=== PATIENT | female | born 1960 | race African-American/Black ===

== ENCOUNTER 2017-04-06 11:09 | Outpatient (CLI) | payer MEDICAID, SELFPAY | END 2017-04-06 11:10 | disposition home or self-care (01) | LOC: EDBD → BICMAMMO 11:09 | PROVIDERS: ATTEND Family Medicine | DX: Z12.31 Encounter for screening mammogram for malignant neoplasm of breast (principal) | CPT/HCPCS: 77067 ==

== ENCOUNTER 2017-09-22 16:15 | Emergency (ER) | payer SELFPAY ==
[2017-09-22 16:32] LABS: #Lymphocytes 2.4 thou/uL (1.20-3.40); #Monocytes 0.4 thou/uL (0.11-0.59); #Neutrophils 2.4 thou/uL (1.40-6.50); %Basophils 0.5 % (0.0-1.0); %Eosinophils 0.8 % (0.0-10.0); %Monocytes 7.2 % (0.0-10.0); %Neutrophils 46.4 % (42.0-75.0); Mean Corpuscular HGB CONC 34.7 g/dL (32.0-36.0); Mean Corpuscular Hemoglobin 31.8 pg (27.0-31.0); Mean Corpuscular Volume 91.7 fL (78.0-98.0); Platelet Count 227 thou/uL (130-400); RBC Distribution Width 11.7 % (11.5-14.5); White Blood Cell (WBC) Count 5.2 thou/uL (4.8-10.8)
[2017-09-22 16:38] LABS: BHCG - Serum Negative (NEGATIVE); PTT 31.4 SEC (22.9-36.1); Pregs Control Background? CLEAR/WHITE (CLR/WHITE); Pregs Control Bar Appear? YES (CONTROL BAR); Prothrombin Time 13.4 SEC (12.0-14.7)
--- NOTE | 2017-09-22 16:41 | CT ---
CT OF THE BRAIN WITHOUT CONTRAST: 09/22/17 COMPARISON: 08/19/07. HISTORY: Seizures for one to two minutes just prior to arrival. Intoxicated patient. TECHNIQUE: Multiple contiguous axial images were obtained in a CT of the brain without contrast. FINDINGS: There are a few scattered hypodensities in the subcortical and periventricular white matter, likely s econdary to small vessel ischemic disease. No large confluent infarction is seen. There is no evidenc e of hydrocephalus, intracranial hemorrhage, or extra-axial fluid collection. The calvarium and overlying soft tissues are unremarkable. The visualized paranasal sinuses and masto id air cells are well aerated. IMPRESSION: No evidence of acute intracranial abnormality. POS: [facility]
[2017-09-22 16:45] LABS: ALT (SGPT) 28 U/L (8-55); AST (SGOT) 56 U/L (5-34); Albumin 4.4 g/dL (3.5-5.0); Alkaline Phosphatase 123 U/L (40-150); Anion Gap 18 mmol/L (10-20); BUN (Urea Nitrogen) 7 mg/dL (9.8-20.1); Bilirubin, Total 0.2 mg/dL (0.2-1.2); CK (CPK) 255 U/L (29-168); Calc. Creatinine Clearance 0 mL/min (70-130); Calcium 9.2 mg/dL (7.8-10.44); Carbon Dioxide 21 mmol/L (22-29); Chloride 107 mmol/L (98-107); Estimated GFR-MDRD Greater than 90; Globulin 3.8 g/dL (2.4-3.5); Glucose 96 mg/dL (70-105); Potassium 3.8 mmol/L (3.5-5.1); Protein, Total 8.2 g/dL (6.0-8.3); Sodium 142 mmol/L (136-145)
[2017-09-22 16:49] LABS: CKMB 1.5 ng/mL (0-6.6); Troponin I Less than 0.010 ng/mL (< 0.028)
[2017-09-22 16:50] LABS: Acetaminophen Less than 6.0 mcg/mL (10.0-30.0); Alcohol 348 mg/dL (Less than 10); Lipase 120 U/L (8-78); Magnesium 2.4 mg/dL (1.6-2.6); Salicylate 9.7 mg/dL (15.0-30.0)
--- NOTE | 2017-09-22 16:53 | CT ---
CT OF THE CERVICAL SPINE WITHOUT CONTRAST: 09/22/17 COMPARISON: None. HISTORY: Seizure and fall with neck pain. TECHNIQUE: Multiple contiguous axial images were obtained in a CT of the cervical spine without contrast. Sagitt al and coronal reformats were performed. FINDINGS: There are moderate degenerative changes of the cervical spine. The vertebral bodies and intervertebra l discs demonstrate normal height and alignment without acute fracture or subluxation. No prevertebra l soft tissue swelling is seen. The posterior facets are well aligned. Normal alignment of the skull base with the cervical spine is seen. IMPRESSION: Degenerative changes of the cervical spine without acute osseous abnormality. POS: [facility]
--- NOTE | 2017-09-22 16:57 | CT ---
CTA OF THE CHEST AND ABDOMEN WITH CONTRAST: 09/22/17 COMPARISON: None. HISTORY: Chest pain and seizure. Abdominal pain after fall. Patient is intoxicated. TECHNIQUE: Multiple contiguous axial images were obtained in a CTA of the chest and abdomen with contrast per ao rtic dissection protocol. 3D sagittal and coronal MIP reformats were performed. FINDINGS: The aorta is normal in caliber without dissection or aneurysmal dilatation. This includes the ascendi ng aorta, descending thoracic aorta and abdominal aorta. The heart is normal in size without focal cardiac abnormality. No hilar or mediastinal lymphadenopath y are seen. No focal infiltrates are seen in the lungs. No pneumothorax or pleural effusion are seen. No suspicio us pulmonary nodule is seen. There is diffuse fatty infiltration of the liver. The gallbladder, kidneys, adrenal glands, spleen, a nd pancreas are unremarkable. No free air, free fluid, or stranding changes are seen in the abdomen. The visualized large and small bowel are unremarkable. No abdominal adenopathy is seen. Degenerative changes are seen in the spine. There are remote healed right posterior rib fractures. Th e chest and abdominal wall soft tissues are unremarkable. IMPRESSION: 1. No evidence of aortic dissection or aneurysmal dilatation. 2. Fatty liver. POS: [facility]
--- NOTE | 2017-09-22 16:58 | RAD ---
SINGLE VIEW OF THE CHEST: 09/22/17 COMPARISON: 10/06/09 HISTORY: Seizure and fall with chest pain. FINDINGS: Single view of the chest shows a normal sized cardiomediastinal silhouette. There is no evidence of c onsolidation, mass, or pleural effusion. The bones are unremarkable. IMPRESSION: No evidence of acute cardiopulmonary disease. POS: [facility]
[2017-09-22 17:02] LABS: Bilirubin Negative (Negative); Blood, Urine Negative (Negative); Clarity CLEAR (Clear); Glucose, Urine (Dipstick) Negative (Negative); Leukocyte Negative (Negative); Nitrite Negative (Negative); Protein, Urine (Dipstick) Negative (Neg-Trace); Urobilinogen 0.2 mg/dL (0.2-1.0); pH, Urine 5.5 (5.0-9.0)
[2017-09-22 17:08] LABS: Specific Gravity, Urine 1.003 (1.002-1.036)
[2017-09-22 17:30] LABS: Amphetamine Not Detected (NotDetected); Barbiturates Screen Not Detected (NotDetected); Benzodiazepine Screen Not Detected (NotDetected); Cocaine Metabolite Screen Not Detected (NotDetected); Medtox Control Line Valid? VALID (VALID); Medtox Reader # READER 1; Methadone Not Detected (NotDetected); Methamphetamine Not Detected (NotDetected); Opiate Screen Not Detected (NotDetected); Oxycodone Screen Not Detected (NotDetected); Phencyclidine (PCP) Not Detected (NotDetected); THC/Cannabinoid Screen Not Detected (NotDetected); Tricyclic Screen Not Detected (NotDetected)
[2017-09-22] MEDS ORDERED: Ketorolac Tromethamine 30 MG/ML VIAL ONE (20:03)
[2017-09-22] MEDS ORDERED: HYDROcodone/Acetaminophen 10/325 mg Tablet ONE (20:03)
== END 2017-09-22 20:51 | disposition home or self-care (01) ==
LOC: ERS 16:15
DX: R56.9 Unspecified convulsions (principal); I10 Essential (primary) hypertension; F32.9 Major depressive disorder, single episode, unspecified; F41.9 Anxiety disorder, unspecified; F17.210 Nicotine dependence, cigarettes, uncomplicated
CPT/HCPCS: 36415; 70450; 71045; 71275; 72125; 80053; 80306; 80307; 81003; 82550; 82553; 83690; 83735; 84146; 84443; 84484; 84703; 85025; 85610; 85730; 93005; 94760; 96361; 96365; 96375; J1885